=== PATIENT | female | born 1960 | race Caucasian/White ===

== ENCOUNTER → 2016-11-03 | Outpatient (CLI) | payer BC ==
--- NOTE | 2016-11-04 08:13 | KCIC ---
MR of the left foot HISTORY: Peroneal tendon tear. Pain along the fifth metatarsal, the arch and across the top of the midfoot for one year. FINDINGS: The peroneal tendons in the foot demonstrate no rupture or discontinuity, or significant fluid. Very mild signal within the peroneus longus tendon at the level of the cuboid compatible with very mild tendinosis. The other tendons in the foot appear intact. Lisfranc ligament complex is intact, as is tarsometatarsal alignment. There is a small fluid signal lesion just plantar to the first and second tarsometatarsal joints, most likely a cyst or ganglion. Measures 15 mm x 7 mm x 6 mm. Minimal subchondral marrow edema at the proximal aspect of the first and second cuneiforms likely degenerative, versus small resolving marrow contusions. No aggressive bone destruction. No acute fracture. 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 There is moderate thickening of the plantar aponeurosis at the calcaneal attachment, compatible with plantar fasciitis. There is not much acute edema, fluid or tear here. The tarsal sinus is intact. IMPRESSION: 1. 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 2. Small cyst or ganglion in the soft tissues just plantar to the first second tarsometatarsal joints. 3. Moderate plantar fasciitis. Electronically signed by: Ruel Cisneros MD (11/04/2016 8:09 AM) [id number]
== END | disposition home or self-care (01) ==
LOC: KCIC MRI 15:53
PROVIDERS: ATTEND Podiatrist Foot & Ankle Surgery
DX: M72.2 Plantar fascial fibromatosis (principal)
CPT/HCPCS: 73718

== ENCOUNTER → 2016-11-03 | Outpatient (CLI) | payer BC ==
--- NOTE | 2016-11-04 09:04 | KCIC ---
INDICATION: Neck pain, right-sided. Shoulder pain. Symptoms worsening, no known injury. Symptoms for several weeks. TECHNIQUE: Sagittal T1, sagittal T2, sagittal STIR, axial T2, and axial T2 gradient sequences are provided. Axial T2 sequence was repeated for motion. No comparison is available. FINDINGS: There is reversal of cervical lordosis. There is no subluxation. There is no worrisome marrow lesion. There is no marrow edema. There is no cord signal abnormality. Cervicomedullary junction is unremarkable. Degenerative findings by individual level are as follows: C1-C2: There is fluid within the articulations of the lateral masses of C1 and C2. This is likely degenerative. Small amount of pannus along the dens is noted. C2-C3: There is facet hypertrophy without canal or foraminal compromise. C3-C4: Disc osteophyte complex and uncinate process spurring are noted. There is facet hypertrophy which is greater on the right. There is minimal canal stenosis with midline AP diameter of the thecal sac 9-10 mm. Foraminal narrowing is probably mild to moderate. C4-C5: Disc osteophyte complex and uncinate process spurring are noted. Facet hypertrophy is greater on the right. There is mild canal stenosis with midline AP diameter of the thecal sac 8-9 mm. Foraminal narrowing appears high-grade bilaterally. It is greater on the right. C5-C6: Disc osteophyte complex and uncinate process spurring are noted. Midline AP diameter of the thecal sac is mildly narrowed to 8-9 mm. Foraminal narrowing again appears high-grade, greater on the left. C6-C7: Disc osteophyte complex has a left paracentral protruding component, probably a disc protrusion. This narrows the left lateral recess. There is also mild canal stenosis, midline AP diameter of the thecal sac 9 mm. There is no foraminal compromise. C7-T1: There is no canal or foraminal compromise. IMPRESSION: Degenerative changes throughout the cervical spine, canal stenosis most notable at C4-C5 and C5-C6. Several levels of foraminal narrowing are noted, as described above. Electronically signed by: Demian Trujillo MD (11/04/2016 9:01 AM) [id number]
== END | disposition home or self-care (01) ==
LOC: KCIC MRI 15:48
PROVIDERS: ATTEND Family Medicine
DX: M48.02 Spinal stenosis, cervical region (principal)
CPT/HCPCS: 72141

== ENCOUNTER → 2017-02-16 | Outpatient (CLI) | payer BC | END | disposition home or self-care (01) | LOC: KCIC 16:05 | DX: M25.562 Pain in left knee (principal) | CPT/HCPCS: 73562 ==